=== PATIENT | male | born 1960 | race Caucasian/White ===

== ENCOUNTER 2016-08-09 16:43 | Emergency (ER) | payer OTHER ==
--- NOTE | 2016-08-09 18:05 | ERRECORD ---
[facility] EMERGENCY RECORD PAST MEDICAL HISTORY (17:51 MDEB) MEDICAL HISTORY: Tetanus not up to date, Pneumococcal vaccine not up to date, , Past medical history includes history of diabetes, Type II, Past medical history includes endocrine disease, hypothyroidism, Past medical history includes history of hyperlipidemia, high cholesterol, Past medical history includes history of hypertension, which has been treated, Past medical history includes pulmonary disease, chronic obstructive pulmonary disease, Past medical history includes cardiac history, Past medical history includes history of diabetes, Past medical history includes history of hyperlipidemia, medical history includes cardiac history, unspecified valvular heart disease, history of hypertension, which has been treated, Patient is compliant, , cardiac history, myocardial infarction ([id number]),,: ANXIETY, . Notes: recent CABG.11/16/11. Tetanus immunization up to date, Date of immunization: LESS THAN 5 YRS. VERIFIED 06/19/16. MALE SURGICAL HISTORY: hernia repair 02-13-16, Surgical history of coronary artery bypass graft surgery, Surgical history of orthopedic surgery, RIGHT ROTATOR CUFF SURGERY, Surgical history of coronary artery bypass graft surgery,. VERIFIED 06/19/16. PSYCHIATRIC HISTORY: Psychiatric history includes, anxiety, depression, Psychiatric history includes, anxiety, depression. No previous psychiatric history. SOCIAL HISTORY: Social History includes off of etoh for 18 months, Patient denies alcohol use, Patient is a former drug user, abused marijuana, Patient currently uses tobacco, chews tobacco, daily, Lives at home. FAMILY HISTORY: Family history includes coronary artery disease, father, Family history includes cerebral vascular accident, mother, maternal grandmother, Family history includes diabetes, father, maternal grandmother, Family history includes hypertension, No significant family history,. KNOWN ALLERGIES No Known Allergies (Unconfirmed) No Known Drug Allergies (Unconfirmed) CURRENT MEDICATIONS No recorded medications PROBLEM LIST No recorded problems DIAGNOSIS (17:53 MDEB) FINAL: PRIMARY: NONE. PRESCRIPTION No recorded prescriptions DISPOSITION (17:53 MDEB) &a-1R&a+25V*p+0X*[id number]*c202B*c15G*c2P*p-0X&a-25V&a+1R Name: Neo Rodríguez : 1960 M56 MedRec: [id number] AcctNum: [id number] Prepared: TueAug 09, 2016 17:58 by Interface Page 1 of 2 pMD [facility] EMERGENCY RECORD PATIENT: Disposition Type: Eloped, Disposition: Left Without Triage, Patient left the department. Loaiza: SANAM=MINA Ojeda, Freda &a-1R&a+25V*p+0X*[id number]*c202B*c15G*c2P*p-0X&a-25V&a+1R Name: Neo Rodríguez : 1960 M56 MedRec: [id number] AcctNum: [id number] Prepared: TueAug 09, 2016 17:58 by Interface Page 2 of 2 pMD [facility]
--- NOTE | 2016-08-09 18:08 | PICIS ---
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 ER, SSN: [id number], Zip Code: [address], KG WEIGHT: 73.48, PHONE: , , , PERSON ID: [id number], PCP: UNKNOWN. COMPLAINT: NECK & RT SIDE PAIN. ADMISSION: URGENCY: 4 Non Urgent, ADMISSION SOURCE: Home, TRANSPORT: Walk-in, BED: TRIAGE. PROVIDERS: TRIAGE NURSE: Freda Ojeda RN. KNOWN ALLERGIES No Known Allergies (Unconfirmed) No Known Drug Allergies (Unconfirmed) CURRENT MEDICATIONS No recorded medications PAST MEDICAL HISTORY (17:51 MDEB) MEDICAL HISTORY: Tetanus not up to date, Pneumococcal vaccine not up to date, , Past medical history includes history of diabetes, Type II, Past medical history includes endocrine disease, hypothyroidism, Past medical history includes history of hyperlipidemia, high cholesterol, Past medical history includes history of hypertension, which has been treated, Past medical history includes pulmonary disease, chronic obstructive pulmonary disease, Past medical history includes cardiac history, Past medical history includes history of diabetes, Past medical history includes history of hyperlipidemia, medical history includes cardiac history, unspecified valvular heart disease, history of hypertension, which has been treated, Patient is compliant, , cardiac history, myocardial infarction ([id number]),,: ANXIETY, . Notes: recent CABG.11/16/11. Tetanus immunization up to date, Date of immunization: LESS THAN 5 YRS. VERIFIED 06/19/16. MALE SURGICAL HISTORY: hernia repair 02-13-16, Surgical history of coronary artery bypass graft surgery, Surgical history of orthopedic surgery, RIGHT ROTATOR CUFF SURGERY, Surgical history of coronary artery bypass graft surgery,. VERIFIED 06/19/16. PSYCHIATRIC HISTORY: Psychiatric history includes, anxiety, depression, Psychiatric history includes, anxiety, depression. No previous psychiatric history. SOCIAL HISTORY: Social History includes off of etoh for 18 months, Patient denies alcohol use, Patient is a former drug user, abused marijuana, Patient currently uses tobacco, chews tobacco, daily, Lives at home. FAMILY HISTORY: Family history includes coronary artery disease, father, Family history includes cerebral vascular accident, mother, maternal grandmother, Family history includes diabetes, &a-1R&a+25V*p+0X*k1830X*c202B*c15G*c2P*p-0X&a-25V&a+1R Name: Neo Rodríguez : 1960 M56 MedRec: [id number] AcctNum: [id number] Prepared: TueAug 09, 2016 18:06 by Interface Page [address] [facility] EMERGENCY RECORD father, maternal grandmother, Family history includes hypertension, No significant family history,. EVENTS TRANSFER: Triage to Emergency Triage. (TueAug 09, 2016 17:51 MDEB) Removed from Emergency Triage. (17:53 MDEB) PROBLEM LIST No recorded problems DIAGNOSIS (17:53 MDEB) FINAL: PRIMARY: NONE. DISPOSITION (17:53 MDEB) PATIENT: Disposition Type: Eloped, Disposition: Left Without Triage, Patient left the department. PRESCRIPTION No recorded prescriptions Loaiza: MDEB=MINA Ojeda, Freda &a-1R&a+25V*p+0X*[id number]*c202B*c15G*c2P*p-0X&a-25V&a+1R Name: Neo Rodríguez : 1960 M56 MedRec: [id number] AcctNum: [id number] Prepared: TueAug 09, 2016 18:06 by Interface Page 2 [facility] 2 pMD [facility]
== END 2016-08-09 17:32 | disposition left against medical advice (07) ==
LOC: MADERS 16:43
DX: Z53.21 Procedure and treatment not carried out due to patient leaving prior to being seen by health care provider (principal)

== ENCOUNTER 2016-09-09 01:16 | Emergency (ER) | payer OTHER ==
[2016-09-09] MEDS ORDERED: Metoclopramide HCl 10 MG/2 ML VIAL ONE (01:48)
[2016-09-09] MEDS ORDERED: Ketorolac Tromethamine 30 MG/ML VIAL ONE (01:48)
[2016-09-09] MEDS ORDERED: methylPREDNISolone Sod Succ/PF 125 MG/2 ML VIAL ONE ×2 (01:48→01:50)
[2016-09-09] MEDS ORDERED: diphenhydrAMINE HCl 50 MG/ML 1 ML VIAL ONE (01:48)
[2016-09-09 02:25] LABS: #Basophils 0.2 thou/uL (0.0-0.2); #Eosinphils 0.2 thou/uL (0.0-0.7); #Lymphocytes 1.3 thou/uL (1.20-3.40); #Monocytes 0.6 thou/uL (0.11-0.59); %Basophils 1.8 % (0.0-1.0); %Eosinophils 1.5 % (0.0-10.0); %Monocytes 5.8 % (0.0-10.0); %Neutrophils 77.9 % (42.0-75.0); Hemoglobin 13.4 g/dL (14.0-18.0); Mean Corpuscular HGB CONC 32.6 g/dL (32.0-36.0); Mean Corpuscular Volume 88.9 fl (80.0-94.0); Mean Platelet Volume 7.5 fL (7.4-10.4); Platelet Count 262 thou/uL (130-400); RBC Distribution Width 14.2 % (11.5-14.5); Red Blood Cell (RBC) Count 4.63 mill/uL (4.70-6.10); White Blood Cell (WBC) Count 10.3 thou/uL (4.8-10.8)
[2016-09-09 02:37] LABS: ALT (SGPT) 31 U/L (0-55); AST (SGOT) 34 U/L (5-34); Albumin 4.1 g/dL (3.5-5.0); Alkaline Phosphatase 77 U/L (40-150); Anion Gap 13 mmol/L (10-20); BUN (Urea Nitrogen) 11 mg/dL (8.4-25.7); Bilirubin, Total 0.3 mg/dL (0.2-1.2); Calc. Creatinine Clearance 0 mL/min (70-130); Carbon Dioxide 27 mmol/L (22-29); Chloride 102 mmol/L (98-107); Estimated GFR-MDRD 56; Globulin 2.8 g/dL (2.4-3.5); Glucose 202 mg/dL (70-105); Potassium 4.6 mmol/L (3.5-5.1); Protein, Total 6.9 g/dL (6.0-8.3); Sodium 137 mmol/L (136-145)
[2016-09-09] MEDS ORDERED: Sodium Chloride 0.9% 1,000 ML BAG ONE (07:07)
[2016-09-09] MEDS ORDERED: Sodium Chloride 0.9% 100 ML BAG ONE (07:07)
--- NOTE | 2016-09-09 12:25 | CT ---
PRELIMINARY REPORT/[facility]/EMERGENCY AFTER HOURS PROCEDURE: EXAM: CT Head Without Intravenous Contrast. CLINICAL HISTORY: 56 years old, male; Pain; Headache; Headache not specified TECHNIQUE: Axial computed tomography images of the head/brain without intravenous contrast. COMPARISON: No relevant prior studies available. FINDINGS: Brain: Normal. Ventricles: Normal. Bones/joints: Normal. No acute fracture. Soft tissues: Normal. Sinuses: Normal. Mastoid air cells: Normal as visualized. No mastoid effusion. IMPRESSION: Normal head/brain CT. Thank you for allowing us to participate in the care of your patient. Dictated and Authenticated by: Jose A Chavez MD 09/09/2016 2:31 AM Central Time ([place] \T\ [place]) FINAL REPORT EMERGENT AFTER HOURS CT OF BRAIN PERFORMED WITHOUT CONTRAST ENHANCEMENT: HISTORY: Headache. FINDINGS: Ventricular and cisternal system is within normal limits for age. There are no signs of intracerebr al hemorrhage or extraaxial fluid collections. The mastoid air cells and visualized sinuses are kathleen ar. IMPRESSION: 1. No acute intracranial abnormalities. 2. This report is in agreement with the temporary report issued by [facility]. POS: [facility]
== END 2016-09-09 03:35 | disposition home or self-care (01) ==
LOC: MADERS 01:16
DX: E11.649 Type 2 diabetes mellitus with hypoglycemia without coma (principal); G43.909 Migraine, unspecified, not intractable, without status migrainosus; E03.9 Hypothyroidism, unspecified; E78.5 Hyperlipidemia, unspecified; E78.00 Pure hypercholesterolemia, unspecified; J44.9 Chronic obstructive pulmonary disease, unspecified; I10 Essential (primary) hypertension; F41.9 Anxiety disorder, unspecified; F32.9 Major depressive disorder, single episode, unspecified; F17.220 Nicotine dependence, chewing tobacco, uncomplicated
CPT/HCPCS: 36416; 70450; 80053; 85025; 96365; 96366; 96375; 36415-59; J1200; J1885; J2765; J2930; J7050

== ENCOUNTER 2016-11-20 10:23 | Emergency (ER) | payer OTHER ==
[2016-11-20] MEDS ORDERED: Metoclopramide HCl 10 MG/2 ML VIAL ONE (10:58)
== END 2016-11-20 12:30 | disposition home or self-care (01) ==
LOC: MADERS 10:23
DX: K59.00 Constipation, unspecified (principal); I12.9 Hypertensive chronic kidney disease with stage 1 through stage 4 chronic kidney disease, or unspecified chronic kidney disease; N18.9 Chronic kidney disease, unspecified; E03.9 Hypothyroidism, unspecified; E78.5 Hyperlipidemia, unspecified; E78.00 Pure hypercholesterolemia, unspecified; F41.9 Anxiety disorder, unspecified; F32.9 Major depressive disorder, single episode, unspecified; Z87.891 Personal history of nicotine dependence
CPT/HCPCS: 96372; J2765

== ENCOUNTER 2017-01-03 20:55 | Emergency (ER) | payer OTHER ==
[2017-01-03] MEDS ORDERED: HYDROcodone/Acetaminophen 10/325 mg Tablet ONE (21:28)
[2017-01-03] MEDS ORDERED: Cyclobenzaprine 10 MG TAB ONE (21:29)
== END 2017-01-03 21:53 | disposition home or self-care (01) ==
LOC: MADERS 20:55
DX: M54.5 Low back pain (principal); E11.9 Type 2 diabetes mellitus without complications; E03.9 Hypothyroidism, unspecified; E78.5 Hyperlipidemia, unspecified; I25.2 Old myocardial infarction; F41.9 Anxiety disorder, unspecified; J44.9 Chronic obstructive pulmonary disease, unspecified; I12.9 Hypertensive chronic kidney disease with stage 1 through stage 4 chronic kidney disease, or unspecified chronic kidney disease; N18.9 Chronic kidney disease, unspecified; Z79.899 Other long term (current) drug therapy; Z79.4 Long term (current) use of insulin; Z79.82 Long term (current) use of aspirin
CPT/HCPCS: 99283

== ENCOUNTER 2017-08-31 10:45 | Emergency (ER) | payer OTHER ==
[2017-08-31] MEDS ORDERED: Iopamidol 370 76% 100 ML VIAL ONE (11:27)
[2017-08-31 11:39] LABS: #Basophils 0.1 thou/uL (0.0-0.2); #Eosinphils 0.1 thou/uL (0.0-0.7); #Monocytes 1.2 thou/uL (0.11-0.59); #Neutrophils 11.7 thou/uL (1.40-6.50); %Basophils 0.9 % (0.0-1.0); %Eosinophils 0.8 % (0.0-10.0); %Lymphocytes 18.3 % (21.0-51.0); %Monocytes 7.6 % (0.0-10.0); %Neutrophils 72.4 % (42.0-75.0); Hemoglobin 14.6 g/dL (14.0-18.0); Mean Corpuscular HGB CONC 30.9 g/dL (32.0-36.0); Mean Corpuscular Hemoglobin 28.3 pg (27.0-31.0); Mean Corpuscular Volume 91.4 fl (80.0-94.0); Platelet Count 249 thou/uL (130-400); Red Blood Cell (RBC) Count 5.15 mill/uL (4.70-6.10); White Blood Cell (WBC) Count 16.2 thou/uL (4.8-10.8)
[2017-08-31] MEDS ORDERED: Ondansetron HCl/PF 4 MG/2 ML Vial ONE (11:44)
[2017-08-31] MEDS ORDERED: Ketorolac Tromethamine 30 MG/ML VIAL ONE (11:44)
[2017-08-31 11:54] LABS: ALT (SGPT) 26 U/L (8-55); AST (SGOT) 25 U/L (5-34); Albumin 4.2 g/dL (3.5-5.0); Alkaline Phosphatase 67 U/L (40-150); Anion Gap 15 mmol/L (10-20); BUN (Urea Nitrogen) 16 mg/dL (8.4-25.7); Calc. Creatinine Clearance 0 mL/min (70-130); Calcium 9.5 mg/dL (7.8-10.44); Carbon Dioxide 28 mmol/L (22-29); Chloride 98 mmol/L (98-107); Estimated GFR-MDRD 47; Globulin 3.4 g/dL (2.4-3.5); Glucose 193 mg/dL (70-105); Lipase 7 U/L (8-78); Potassium 4.8 mmol/L (3.5-5.1); Protein, Total 7.6 g/dL (6.0-8.3); Sodium 136 mmol/L (136-145)
[2017-08-31 11:55] LABS: Bilirubin Negative (Negative); Blood, Urine Negative (Negative); Clarity Clear (Clear); Glucose, Urine (Dipstick) 500 mg/dL (Negative); Leukocyte Negative (Negative); Nitrite Negative (Negative); Protein, Urine (Dipstick) Trace mg/dL (Neg-Trace); Specific Gravity, Urine 1.015 (1.005-1.030); Urobilinogen 0.2 mg/dL (0.2-1.0)
[2017-08-31] MEDS ORDERED: MORPHINE 10 MG/ML SYRINGE ONE (12:20)
[2017-08-31] MEDS ORDERED: Piperacillin/Tazobactam 3.375 GM VIAL ONE (12:20)
[2017-08-31 12:24] LABS: Bilirubin, Total 0.6 mg/dL (0.2-1.2)
--- NOTE | 2017-08-31 13:22 | CT ---
CT ABDOMEN AND PELVIS WITH IV CONTRAST: HISTORY: Abdominal pain. FINDINGS: Comparison is made with the exam of 11/22/16. There is a calcified granuloma in the anterior lung base. The liver, pancreas, adrenal gland, and ki dneys are normal. No calcified gallstones are seen. Multiple calcified granulomas are seen in the s pleen. No free air, free fluid, or lymphadenopathy is seen. The appendix is dilated, fluid-filled w ith periappendiceal inflammatory changes which extend into the adjacent sigmoid colon. The prostate is enlarged. There are degenerative changes in the spine. IMPRESSION: Acute appendicitis. Discussed over the telephone with ER physician, Dr. Rigo Barcenas, at 12:10 p.m. CODE CR POS: [facility]
[2017-08-31] MEDS ORDERED: Sodium Chloride 0.9% 100 ML BAG ONE (13:47)
[2017-08-31] MEDS ORDERED: Sodium Chloride 0.9% 1,000 ML BAG ONE (13:47)
[2017-08-31] MEDS ORDERED: Fentanyl 100 MCG/2 ML VIAL ONE ×2 (19:10→19:35)
== END 2017-08-31 13:07 | disposition short-term general hospital (02) ==
LOC: MADERS 10:45
DX: K35.80 Unspecified acute appendicitis (principal); E11.9 Type 2 diabetes mellitus without complications; E03.9 Hypothyroidism, unspecified; E78.5 Hyperlipidemia, unspecified; J44.9 Chronic obstructive pulmonary disease, unspecified; I25.2 Old myocardial infarction; F41.9 Anxiety disorder, unspecified; I12.9 Hypertensive chronic kidney disease with stage 1 through stage 4 chronic kidney disease, or unspecified chronic kidney disease; N18.9 Chronic kidney disease, unspecified; F32.9 Major depressive disorder, single episode, unspecified; Z87.891 Personal history of nicotine dependence; Z79.899 Other long term (current) drug therapy; Z79.4 Long term (current) use of insulin
CPT/HCPCS: 74177; 80053; 81003; 83690; 85025; 96361; 96365; 96375; J1885; J2270; J2405; J2543; J3010; J7050; J7620

== ENCOUNTER 2017-09-16 10:34 | Emergency (ER) | payer OTHER ==
[2017-09-16 11:22] LABS: Bilirubin Negative (Negative); Blood, Urine Negative (Negative); Clarity Clear (Clear); Glucose, Urine (Dipstick) 500 mg/dL (Negative); Leukocyte Negative (Negative); Nitrite Negative (Negative); Protein, Urine (Dipstick) Negative (Neg-Trace); Urobilinogen 0.2 mg/dL (0.2-1.0); pH, Urine 5.5 (5.0-9.0)
[2017-09-16 11:29] LABS: #Basophils 0.1 thou/uL (0.0-0.2); #Eosinphils 0.2 thou/uL (0.0-0.7); #Lymphocytes 2.3 thou/uL (1.20-3.40); #Monocytes 0.8 thou/uL (0.11-0.59); #Neutrophils 7.8 thou/uL (1.40-6.50); %Basophils 0.9 % (0.0-1.0); %Eosinophils 1.7 % (0.0-10.0); %Lymphocytes 20.7 % (21.0-51.0); %Monocytes 6.8 % (0.0-10.0); %Neutrophils 69.9 % (42.0-75.0); Hemoglobin 13.4 g/dL (14.0-18.0); Mean Corpuscular HGB CONC 30.7 g/dL (32.0-36.0); Mean Corpuscular Hemoglobin 28.5 pg (27.0-31.0); Mean Corpuscular Volume 92.9 fl (80.0-94.0); Mean Platelet Volume 7.1 fL (7.4-10.4); Platelet Count 257 thou/uL (130-400); RBC Distribution Width 15.5 % (11.5-14.5); Red Blood Cell (RBC) Count 4.68 mill/uL (4.70-6.10); White Blood Cell (WBC) Count 11.2 thou/uL (4.8-10.8)
[2017-09-16 11:41] LABS: ALT (SGPT) 32 U/L (8-55); AST (SGOT) 25 U/L (5-34); Albumin 3.9 g/dL (3.5-5.0); Alkaline Phosphatase 71 U/L (40-150); Anion Gap 14 mmol/L (10-20); BUN (Urea Nitrogen) 22 mg/dL (8.4-25.7); Bilirubin, Total 0.2 mg/dL (0.2-1.2); Calc. Creatinine Clearance 0 mL/min (70-130); Calcium 9.1 mg/dL (7.8-10.44); Carbon Dioxide 27 mmol/L (22-29); Chloride 98 mmol/L (98-107); Estimated GFR-MDRD 44; Glucose 332 mg/dL (70-105); Potassium 5.1 mmol/L (3.5-5.1); Protein, Total 6.9 g/dL (6.0-8.3); Sodium 134 mmol/L (136-145)
== END 2017-09-16 12:00 | disposition home or self-care (01) ==
LOC: MADERS 10:34
DX: G89.18 Other acute postprocedural pain (principal); K59.00 Constipation, unspecified; E03.9 Hypothyroidism, unspecified; E78.5 Hyperlipidemia, unspecified; J44.9 Chronic obstructive pulmonary disease, unspecified; I25.2 Old myocardial infarction; F41.9 Anxiety disorder, unspecified; M19.90 Unspecified osteoarthritis, unspecified site; I12.9 Hypertensive chronic kidney disease with stage 1 through stage 4 chronic kidney disease, or unspecified chronic kidney disease; E11.22 Type 2 diabetes mellitus with diabetic chronic kidney disease; N18.9 Chronic kidney disease, unspecified; F32.9 Major depressive disorder, single episode, unspecified; Z87.891 Personal history of nicotine dependence; Z79.82 Long term (current) use of aspirin; Z79.4 Long term (current) use of insulin; Z79.899 Other long term (current) drug therapy
CPT/HCPCS: 80053; 81003; 83605; 85025; 99283

== ENCOUNTER 2017-12-29 19:09 | Emergency (ER) | payer OTHER ==
[~2017-12-29 19:09] MED LIST: Sodium Chloride 0.9% 1,000 ML BAG ONE
[2017-12-29] MEDS ORDERED: Fentanyl 100 MCG/2 ML VIAL ONE ×2 (19:31→21:01)
[2017-12-29] MEDS ORDERED: Famotidine In NaCl 20 mg/50 ml Premix Bag ONE (19:31)
[2017-12-29] MEDS ORDERED: Ondansetron HCl/PF 4 MG/2 ML Vial ONE ×2 (19:31→21:01)
[2017-12-29 19:48] LABS: Anion Gap 17 mmol/L (10-20); BUN (Urea Nitrogen) 28 mg/dL (8.4-25.7); Calc. Creatinine Clearance 0 mL/min (70-130); Calcium 9.7 mg/dL (7.8-10.44); Carbon Dioxide 23 mmol/L (22-29); Chloride 98 mmol/L (98-107); Estimated GFR-MDRD 33; Glucose 129 mg/dL (70-105); Potassium 4.7 mmol/L (3.5-5.1); Sodium 133 mmol/L (136-145)
[2017-12-29 19:53] LABS: Band 2 % (5-11); Hemoglobin 15.7 g/dL (14.0-18.0); Lymphocytes 38 % (21-51); MDiff Complete? YES; Mean Corpuscular HGB CONC 31.7 g/dL (32.0-36.0); Mean Corpuscular Hemoglobin 27.4 pg (27.0-31.0); Mean Corpuscular Volume 86.3 fL (78.0-98.0); Mean Platelet Volume 6.4 fL (7.4-10.4); Monocytes 8 % (0-10); Neutrophil 52 % (42-75); PLT Morphology Comment Appears Adequate; Platelet Count 313 thou/uL (130-400); RBC Distribution Width 13.9 % (11.5-14.5); Red Blood Cell (RBC) Count 5.72 mill/uL (4.70-6.10)
--- NOTE | 2017-12-29 22:00 | CT ---
CT ABDOMEN NONCONTRAST CT PELVIS NONCONTRAST: DATE: 12/29/17 TIME: 9:30 p.m. HISTORY: 57-year-old male with left upper quadrant abdominal pain and left lower quadrant abdominal pain. COMPARISON: CT abdomen and pelvis with contrast of 08/31/17. TECHNIQUE: Oral contrast: Administered. IV contrast: Not administered due to chronic kidney disease and elevated serum creatinine. FINDINGS: Previously on 08/31/17, there was acute appendicitis. The appendix has since been surgically resected, and there are two tiny clips near the distal tip of the cecum. The oral contrast material fills the colon from the cecum to the sigmoid colon. No evidence of acute colonic diverticulitis or colitis inv olving these segments. No small bowel dilation. No ascites or pneumoperitoneum. Prominent prostate gl and. Borderline mural thickening of the urinary bladder which is otherwise unremarkable. No evidence of abscess, free air, or free fluid, within the abdominal cavity or pelvic cavity. Lung bases are kathleen ar of acute air space densities and pleural effusion. Within the limitations of the noncontrast scan, no major pathology identified involving the abdominal aorta, liver, pancreas, kidneys, adrenals, or spleen. No destructive osseous lesion identified. Numerous tiny calcified granulomata throughout the spleen. Calcified hilar lymph nodes in the chest bilaterally. IMPRESSION: 1. Enlarged prostate gland and probable, at least mild, chronic bladder outlet obstruction. 2. Status post appendectomy. 3. No acute findings. POS: [facility]
== END 2017-12-29 22:20 | disposition home or self-care (01) ==
LOC: MADERS 19:09
DX: R10.12 Left upper quadrant pain (principal); I12.9 Hypertensive chronic kidney disease with stage 1 through stage 4 chronic kidney disease, or unspecified chronic kidney disease; E11.22 Type 2 diabetes mellitus with diabetic chronic kidney disease; N18.9 Chronic kidney disease, unspecified; E03.9 Hypothyroidism, unspecified; E78.5 Hyperlipidemia, unspecified; M19.90 Unspecified osteoarthritis, unspecified site; F41.9 Anxiety disorder, unspecified; F32.9 Major depressive disorder, single episode, unspecified; Z79.82 Long term (current) use of aspirin; Z79.899 Other long term (current) drug therapy; Z79.4 Long term (current) use of insulin; Z87.891 Personal history of nicotine dependence
CPT/HCPCS: 74176; 80048; 82150; 83605; 85025; 96361; 96365; 96375; 96376; J2405; J3010; J7050

== ENCOUNTER 2018-02-25 20:21 | Emergency (ER) | payer OTHER ==
[2018-02-25] MEDS ORDERED: Ondansetron ODT 4 MG TAB ONE (20:55)
[2018-02-25 21:00] LABS: Bilirubin Negative (Negative); Blood, Urine Negative (Negative); Clarity Clear (Clear); Glucose, Urine (Dipstick) 100 mg/dL (Negative); Leukocyte Negative (Negative); Nitrite Negative (Negative); Protein, Urine (Dipstick) Negative (Neg-Trace); Specific Gravity, Urine 1.015 (1.005-1.030); Urobilinogen 0.2 mg/dL (0.2-1.0)
--- NOTE | 2018-02-25 21:05 | RAD ---
ABDOMEN ONE VIEW: 02/25/18 HISTORY: Abdominal pain. Constipation. FINDINGS: Small bowel gas pattern is nonspecific. No radiopaque foreign bodies are evident. Degenerative change s of the hips and lumbar spine. IMPRESSION: No significant abnormalities are demonstrated. POS: [facility]
[2018-02-25] MEDS ORDERED: Ibuprofen 800 MG TAB ONE (21:44)
== END 2018-02-25 21:46 | disposition home or self-care (01) ==
LOC: MADERS 20:21
DX: K59.00 Constipation, unspecified (principal); M54.5 Low back pain; I10 Essential (primary) hypertension; E11.9 Type 2 diabetes mellitus without complications; E78.5 Hyperlipidemia, unspecified; J44.9 Chronic obstructive pulmonary disease, unspecified; I25.2 Old myocardial infarction; F41.9 Anxiety disorder, unspecified; F32.9 Major depressive disorder, single episode, unspecified; Z79.4 Long term (current) use of insulin; Z79.899 Other long term (current) drug therapy; Z79.891 Long term (current) use of opiate analgesic
CPT/HCPCS: 74018; 81003; Q0162

== ENCOUNTER 2018-04-02 23:57 | Emergency (ER) | payer OTHER ==
[~2018-04-02 23:57] MED LIST changes: -Sodium Chloride 0.9% 1,000 ML BAG ONE; +Sodium Chloride Irrig Solution 250 ML BOT ONE
[2018-04-03] MEDS ORDERED: Lidocaine 2% w/Epinephrine 1:200K 20 ML VIAL ONE (00:11)
== END 2018-04-03 00:40 | disposition home or self-care (01) ==
LOC: MADERS 23:57
DX: S21.211A Laceration without foreign body of right back wall of thorax without penetration into thoracic cavity, initial encounter (principal); E78.5 Hyperlipidemia, unspecified; E11.22 Type 2 diabetes mellitus with diabetic chronic kidney disease; M19.90 Unspecified osteoarthritis, unspecified site; I12.9 Hypertensive chronic kidney disease with stage 1 through stage 4 chronic kidney disease, or unspecified chronic kidney disease; N18.9 Chronic kidney disease, unspecified; I25.2 Old myocardial infarction; J44.9 Chronic obstructive pulmonary disease, unspecified; F41.9 Anxiety disorder, unspecified; F32.9 Major depressive disorder, single episode, unspecified; I38 Endocarditis, valve unspecified; Z87.891 Personal history of nicotine dependence; Z79.4 Long term (current) use of insulin; Z79.891 Long term (current) use of opiate analgesic; Z79.899 Other long term (current) drug therapy; Z79.82 Long term (current) use of aspirin
CPT/HCPCS: 12001

== ENCOUNTER 2018-05-09 20:31 | Emergency (ER) | payer OTHER ==
[2018-05-09] MEDS ORDERED: Ondansetron PF 4 MG/2 ML Vial ONE (20:59)
[2018-05-09 21:16] LABS: #Basophils 0.2 thou/uL (0.0-0.2); #Eosinphils 0.2 thou/uL (0.0-0.7); #Lymphocytes 3.5 thou/uL (1.20-3.40); #Monocytes 0.9 thou/uL (0.11-0.59); #Neutrophils 6.6 thou/uL (1.40-6.50); %Basophils 1.4 % (0.0-1.0); %Lymphocytes 30.9 % (21.0-51.0); %Monocytes 7.6 % (0.0-10.0); %Neutrophils 58.1 % (42.0-75.0); Hemoglobin 14.8 g/dL (14.0-18.0); Mean Corpuscular HGB CONC 34.1 g/dL (32.0-36.0); Mean Corpuscular Hemoglobin 31.4 pg (27.0-31.0); Mean Corpuscular Volume 92.1 fL (78.0-98.0); Mean Platelet Volume 6.9 fL (7.4-10.4); Platelet Count 268 thou/uL (130-400); RBC Distribution Width 12.8 % (11.5-14.5); Red Blood Cell (RBC) Count 4.71 mill/uL (4.70-6.10); White Blood Cell (WBC) Count 11.4 thou/uL (4.8-10.8)
[2018-05-09 21:20] LABS: Bilirubin Negative (Negative); Blood, Urine Negative (Negative); Clarity Clear (Clear); Glucose, Urine (Dipstick) 100 mg/dL (Negative); Leukocyte Negative (Negative); Nitrite Negative (Negative); Protein, Urine (Dipstick) Negative (Neg-Trace); Urobilinogen 0.2 mg/dL (0.2-1.0)
[2018-05-09] MEDS ORDERED: Acetaminophen 500 MG TAB ONE (21:29)
[2018-05-09 21:37] LABS: ALT (SGPT) 39 U/L (8-55); AST (SGOT) 42 U/L (5-34); Albumin 4.1 g/dL (3.5-5.0); Alkaline Phosphatase 73 U/L (40-150); Anion Gap 14 mmol/L (10-20); BUN (Urea Nitrogen) 17 mg/dL (8.4-25.7); Bilirubin, Total 0.4 mg/dL (0.2-1.2); Calc. Creatinine Clearance 0 mL/min (70-130); Calcium 8.9 mg/dL (7.8-10.44); Carbon Dioxide 24 mmol/L (22-29); Chloride 103 mmol/L (98-107); Estimated GFR-MDRD 49; Glucose 145 mg/dL (70-105); Lipase 29 U/L (8-78); Potassium 3.7 mmol/L (3.5-5.1); Protein, Total 7.1 g/dL (6.0-8.3); Sodium 137 mmol/L (136-145)
--- NOTE | 2018-05-09 22:25 | RAD ---
CHEST ONE VIEW: 05/09/18 COMPARISON: 08/31/17. HISTORY: Dyspnea. FINDINGS: There are sternotomy wires. There is calcification of mediastinal and hilar lymph nodes, unchanged. N ormal cardiac silhouette. Pulmonary vessels are prominent. Patchy interstitial opacities may represen t edema or infiltrate. No consolidation or pleural effusion. No pneumothorax or osseous abnormalities . IMPRESSION: Pulmonary vascular prominence and possible interstitial edema. POS: [facility]
--- NOTE | 2018-05-09 23:40 | CT ---
ABDOMEN CT WITH CONTRAST PELVIC CT WITH CONTRAST 05/09/18 HISTORY: Right flank pain. COMPARISON: 08/31/17, 12/29/17. FINDINGS: ABDOMEN CT: Stable calcified lung parenchymal nodules and hilar lymph nodes. Normal heart size. No pericardial fl uid. The visualized aorta is normal in caliber. Portal vein is patent. Unremarkable gallbladder. The liver, spleen, pancreas, and adrenal glands have appropriate enhancement. No gastrohepatic, periportal or retrocrural lymphadenopathy. There are stable nonspecific gastrohepat ic lymph nodes, largest lymph node measuring 6 mm. Symmetric enhancement of the kidneys. Bilaterally, no obstructive uropathy. No mesenteric mass, lymphadenopathy, free air, or free fluid. Limited evaluation of the alimentary canal due to lack of oral contrast. No evidence of bowel obstruc tion. Previous appendectomy is noted. Unremarkable colon. Occasional diverticulum. No diverticulitis. CT PELVIS: No pelvic mass, lymphadenopathy, free air or free fluid. Prostate gland is mildly enlarged. Bladder m ucosa is unremarkable. No lytic or blastic lesions in the osseous structures. IMPRESSION: No acute abnormality in the abdomen or pelvis. POS: [facility]
== END 2018-05-09 22:35 | disposition home or self-care (01) ==
LOC: MADERS 20:31
DX: R10.9 Unspecified abdominal pain (principal); J44.9 Chronic obstructive pulmonary disease, unspecified; E11.9 Type 2 diabetes mellitus without complications; E78.5 Hyperlipidemia, unspecified; I38 Endocarditis, valve unspecified; N18.9 Chronic kidney disease, unspecified; F41.9 Anxiety disorder, unspecified; M19.90 Unspecified osteoarthritis, unspecified site; F17.220 Nicotine dependence, chewing tobacco, uncomplicated; F32.9 Major depressive disorder, single episode, unspecified; Z79.891 Long term (current) use of opiate analgesic; Z79.4 Long term (current) use of insulin
CPT/HCPCS: 71045; 74177; 80053; 81003; 83605; 83690; 85025; 94640; 94760; 96374; J2405; J7620

== ENCOUNTER 2018-09-20 19:56 | Emergency (ER) | payer OTHER ==
[~2018-09-20 19:56] MED LIST changes: +Iopamidol 370 76% 100 ML VIAL ONE; -Sodium Chloride Irrig Solution 250 ML BOT ONE
[2018-09-20] MEDS ORDERED: Sodium Chloride 0.9% 1,000 ML ONE (20:30)
[2018-09-20] MEDS ORDERED: Ondansetron PF 4 MG/2 ML Vial ONE (20:30)
[2018-09-20] MEDS ORDERED: Fentanyl 100 MCG/2 ML VIAL ONE (20:30)
[2018-09-20 20:34] LABS: #Basophils 0.1 thou/uL (0.0-0.2); #Eosinphils 0.2 thou/uL (0.0-0.7); #Lymphocytes 3.5 thou/uL (1.20-3.40); #Monocytes 0.9 thou/uL (0.11-0.59); %Basophils 1.1 % (0.0-1.0); %Eosinophils 2.1 % (0.0-10.0); %Lymphocytes 29.5 % (21.0-51.0); %Monocytes 7.8 % (0.0-10.0); %Neutrophils 59.5 % (42.0-75.0); Hemoglobin 16.6 g/dL (14.0-18.0); Mean Corpuscular HGB CONC 32.1 g/dL (32.0-36.0); Mean Corpuscular Volume 93.4 fL (78.0-98.0); Mean Platelet Volume 7.2 fL (7.4-10.4); Platelet Count 264 thou/uL (130-400); RBC Distribution Width 12.5 % (11.5-14.5); Red Blood Cell (RBC) Count 5.54 mill/uL (4.70-6.10); White Blood Cell (WBC) Count 11.7 thou/uL (4.8-10.8)
[2018-09-20 20:41] LABS: Bilirubin Negative (Negative); Blood, Urine Negative (Negative); Clarity Clear (Clear); Glucose, Urine (Dipstick) 100 mg/dL (Negative); Leukocyte Negative (Negative); Nitrite Negative (Negative); Protein, Urine (Dipstick) Negative (Neg-Trace); Specific Gravity, Urine 1.015 (1.005-1.030); Urobilinogen 0.2 mg/dL (0.2-1.0); pH, Urine 7.5 (5.0-9.0)
[2018-09-20 20:51] LABS: ALT (SGPT) 31 U/L (8-55); AST (SGOT) 24 U/L (5-34); Albumin 4.5 g/dL (3.5-5.0); Alkaline Phosphatase 74 U/L (40-150); Anion Gap 16 mmol/L (10-20); BUN (Urea Nitrogen) 26 mg/dL (8.4-25.7); Bilirubin, Total 0.3 mg/dL (0.2-1.2); Calc. Creatinine Clearance 0 mL/min (70-130); Calcium 9.7 mg/dL (7.8-10.44); Carbon Dioxide 28 mmol/L (22-29); Chloride 98 mmol/L (98-107); Estimated GFR-MDRD 44; Globulin 2.7 g/dL (2.4-3.5); Glucose 165 mg/dL (70-105); Lipase 22 U/L (8-78); Potassium 4.7 mmol/L (3.5-5.1); Protein, Total 7.2 g/dL (6.0-8.3); Sodium 137 mmol/L (136-145)
[2018-09-20] MEDS ORDERED: Dicyclomine 10 MG CAP ONE (21:53)
--- NOTE | 2018-09-20 22:16 | CT ---
CT ABDOMEN AND PELVIS WITH IV CONTRAST 09/20/18 HISTORY: Abdominal pain and bloating. COMPARISON: 05/09/18. FINDINGS: Again noted is evidence of prior granulomatous disease with bilateral calcified hilar lymph nodes, ca lcified granuloma in the right middle lobe as well as calcified granulomata in the spleen. There is mild dependent bibasilar atelectasis. The liver, pancreas, bilateral adrenal glands, kidneys, abdominal aorta an urinary bladder demonstrat e a normal CT appearance. There is some metallic densities seen adjacent to the cecal apex which may be related to prior append ectomy, but there is a short appendiceal stump which is normal in caliber. There has been no interval change when compared to the prior exam. IMPRESSION: Stable CT scan of the abdomen and pelvis without acute abnormality identified within the abdomen or p louise. POS: [facility]
== END 2018-09-20 22:08 | disposition home or self-care (01) ==
LOC: MADERS 19:56
DX: R10.32 Left lower quadrant pain (principal); E11.9 Type 2 diabetes mellitus without complications; I12.9 Hypertensive chronic kidney disease with stage 1 through stage 4 chronic kidney disease, or unspecified chronic kidney disease; N18.9 Chronic kidney disease, unspecified; I25.10 Atherosclerotic heart disease of native coronary artery without angina pectoris; J44.9 Chronic obstructive pulmonary disease, unspecified; F17.210 Nicotine dependence, cigarettes, uncomplicated; F41.9 Anxiety disorder, unspecified; I25.2 Old myocardial infarction; E78.5 Hyperlipidemia, unspecified; M19.90 Unspecified osteoarthritis, unspecified site; Z79.899 Other long term (current) drug therapy; Z79.891 Long term (current) use of opiate analgesic; Z79.84 Long term (current) use of oral hypoglycemic drugs
CPT/HCPCS: 74177; 80053; 81003; 83605; 83690; 84484; 85025; 93005; 96361; 96374; 96375; J2405; J3010; J7050; Q9967

== ENCOUNTER 2019-03-02 11:41 | Emergency (ER) | payer OTHER ==
--- NOTE | 2019-03-02 12:35 | RAD ---
Exam:2 views left hip HISTORY: Pain. Injury. COMPARISON: 04/06/2015 FINDINGS: Mild loss of joint space height. Contour of the femoral head is maintained. No fracture. Vi sualized bony pelvis is unremarkable. IMPRESSION: Unremarkable 2 views left hip
[2019-03-02] MEDS ORDERED: traMADol HCl 50 MG TAB ONE (13:04)
== END 2019-03-02 13:06 | disposition home or self-care (01) ==
LOC: MADERS 11:41
DX: S39.011A Strain of muscle, fascia and tendon of abdomen, initial encounter (principal); E11.22 Type 2 diabetes mellitus with diabetic chronic kidney disease; I12.9 Hypertensive chronic kidney disease with stage 1 through stage 4 chronic kidney disease, or unspecified chronic kidney disease; N18.9 Chronic kidney disease, unspecified; E03.9 Hypothyroidism, unspecified; E78.5 Hyperlipidemia, unspecified; E78.00 Pure hypercholesterolemia, unspecified; J44.9 Chronic obstructive pulmonary disease, unspecified; I25.2 Old myocardial infarction; F41.9 Anxiety disorder, unspecified; M19.90 Unspecified osteoarthritis, unspecified site; Z87.891 Personal history of nicotine dependence; Z79.899 Other long term (current) drug therapy; Z79.4 Long term (current) use of insulin; X50.9XXA Other and unspecified overexertion or strenuous movements or postures, initial encounter

== ENCOUNTER 2020-03-03 11:02 | Outpatient (CLI) | payer OTHER ==
--- NOTE | 2020-03-03 13:24 | RAD ---
RADIOGRAPH CERVICAL SPINE 5 VIEWS: DATE: 03/03/2020 HISTORY: 59-year-old male with cervicalgia. FINDINGS: Vertebral body heights are maintained. No high grade disc space narrowing at any level. Moderate face t DJD at C2-3 as seen on lateral view. No high grade DJD at bilateral atlantoaxial joints. No high grade bony central spinal canal stenosis or high grade left neural foraminal stenosis. Uncinate process osteophytes and facet hypertrophy encroach upon right neural foramina at C3-4 and C5 -6, causing at least mild right neural foraminal stenosis. Loss of lordosis suggestive of muscle spasm. Small end plate marginal osteophytes at C4-5. Bilateral degenerative facet hypertrophy at several levels. IMPRESSION: Cervical spondylosis consisting of multilevel facet osteoarthrosis. JN [] POS: [facility]
== END 2020-03-03 11:03 | disposition home or self-care (01) ==
LOC: MADRAD 11:02
PROVIDERS: ATTEND Family Medicine
DX: M54.2 Cervicalgia (principal); M47.812 Spondylosis without myelopathy or radiculopathy, cervical region
CPT/HCPCS: 72050

== ENCOUNTER 2020-05-01 15:33 | Emergency (ER) | payer OTHER ==
[~2020-05-01 15:33] MED LIST changes: +Sodium Chloride 0.9% 1,000 ML BAG ONE
[2020-05-01] MEDS ORDERED: Ondansetron PF 4 MG/2 ML Vial ONE (16:15)
[2020-05-01] MEDS ORDERED: Morphine 4 MG/ML VIAL ONE ×2 (16:15→18:02)
[2020-05-01 16:39] LABS: #Basophils 0.1 thou/uL (0.0-0.2); #Eosinphils 0.3 thou/uL (0.0-0.7); #Lymphocytes 2.9 thou/uL (1.20-3.40); #Monocytes 0.7 thou/uL (0.11-0.59); #Neutrophils 4.9 thou/uL (1.40-6.50); %Basophils 1.2 % (0.0-1.0); %Eosinophils 2.8 % (0.0-10.0); %Lymphocytes 32.7 % (21.0-51.0); %Monocytes 8.1 % (0.0-10.0); %Neutrophils 55.1 % (42.0-75.0); Hemoglobin 14.6 g/dL (14.0-18.0); Mean Corpuscular HGB CONC 30.7 g/dL (32.0-36.0); Mean Corpuscular Hemoglobin 31.2 pg (27.0-31.0); Mean Corpuscular Volume 101.6 fL (78.0-98.0); Mean Platelet Volume 6.9 fL (7.4-10.4); Platelet Count 235 thou/uL (130-400); RBC Distribution Width 13.8 % (11.5-14.5); Red Blood Cell (RBC) Count 4.67 mill/uL (4.70-6.10); White Blood Cell (WBC) Count 8.9 thou/uL (4.8-10.8)
[2020-05-01 16:54] LABS: ALT (SGPT) 40 U/L (8-55); AST (SGOT) 37 U/L (5-34); Alkaline Phosphatase 56 U/L (40-110); Anion Gap 13 mmol/L (10-20); BUN (Urea Nitrogen) 20 mg/dL (8.4-25.7); Bilirubin, Total 0.2 mg/dL (0.2-1.2); Calc. Creatinine Clearance 0 mL/min (70-130); Calcium 8.7 mg/dL (7.8-10.44); Carbon Dioxide 29 mmol/L (23-31); Chloride 102 mmol/L (98-107); Estimated GFR-MDRD 48; Globulin 2.8 g/dL (2.4-3.5); Glucose 103 mg/dL (80-115); Lipase 23 U/L (8-78); Potassium 4.1 mmol/L (3.5-5.1); Protein, Total 6.8 g/dL (5.8-8.1); Sodium 140 mmol/L (136-145)
--- NOTE | 2020-05-01 17:42 | CT ---
CT OF THE ABDOMEN AND PELVIS WITH IV CONTRAST INDICATION: Right upper quadrant abdominal pain with history of appendectomy and hernia repair COMPARISON: Prior CT the abdomen and pelvis dated September 20, 2018 FINDINGS: ABDOMEN: Lung bases: There is a calcified granuloma in the right middle lobe. Lung bases are clear. Liver: There is diffuse fatty liver. There are scattered calcified granuloma. Gallbladder: Normal appearing. Pancreas: Normal. Adrenal glands: Normal. Spleen: There are calcified granuloma in the spleen Kidneys and ureters: Normal. No hydronephrosis. Vasculature: Normal. Lymph nodes:No lymphadenopathy. Free fluid in abdomen:No free fluid is evident. PELVIS: Small and large bowel: Normal Appendix:Not definitely seen Bladder: Normal. Rectal and perirectal soft tissues:Normal. Reproductive structures: Normal. Free fluid in pelvis: No free fluid is evident. Lymphadenopathy pelvis: No lymphadenopathy is evident. Osseous structures: No acute osseous abnormality. No destructive osteolytic or osteoblastic lesion i s identified. There is scattered degenerative and osteoarthritic changes. Soft tissues:There is a fat-containing umbilicus hernia. IMPRESSION: 1. No acute abnormality.
== END 2020-05-01 20:17 | disposition home or self-care (01) ==
LOC: MADERS 15:33
DX: R10.31 Right lower quadrant pain (principal); E11.9 Type 2 diabetes mellitus without complications; E03.9 Hypothyroidism, unspecified; E78.5 Hyperlipidemia, unspecified; E78.00 Pure hypercholesterolemia, unspecified; J44.9 Chronic obstructive pulmonary disease, unspecified; M10.9 Gout, unspecified; I25.2 Old myocardial infarction; I12.9 Hypertensive chronic kidney disease with stage 1 through stage 4 chronic kidney disease, or unspecified chronic kidney disease; N18.9 Chronic kidney disease, unspecified; F41.9 Anxiety disorder, unspecified; F32.9 Major depressive disorder, single episode, unspecified; Z87.891 Personal history of nicotine dependence
CPT/HCPCS: 74177; 80053; 83605; 83690; 85025; 93005; 96374; 96375; 96376; J2270; J2405; J7050; Q9967

== ENCOUNTER 2021-07-31 18:09 | Emergency (ER) | payer OTHER | END 2021-07-31 18:40 | disposition left against medical advice (07) | LOC: MADERS 18:09 | DX: Z53.21 Procedure and treatment not carried out due to patient leaving prior to being seen by health care provider (principal) ==

== ENCOUNTER 2022-09-09 10:10 | Outpatient (CLI) | payer OTHER | END 2022-09-09 10:11 | disposition home or self-care (01) | LOC: MADRAD 10:10 | PROVIDERS: ATTEND Family Medicine | DX: K59.00 Constipation, unspecified (principal); R14.0 Abdominal distension (gaseous) | CPT/HCPCS: 74018 ==

== ENCOUNTER 2023-04-11 12:18 | Emergency (ER) | payer OTHER, MEDICARE, MEDICAID ==
[2023-04-11 12:55] LABS: #Basophils 0.1 thou/uL (0.0-0.2); #Eosinphils 0.2 thou/uL (0.0-0.7); #Lymphocytes 2.5 thou/uL (1.20-3.40); #Monocytes 0.5 thou/uL (0.11-0.59); #Neutrophils 4.6 thou/uL (1.40-6.50); %Basophils 0.9 % (0.0-1.0); %Eosinophils 2.3 % (0.0-10.0); %Lymphocytes 31.8 % (21.0-51.0); %Monocytes 6.4 % (0.0-10.0); %Neutrophils 58.5 % (42.0-75.0); Hematocrit 51.1 % (42.0-52.0); Hemoglobin 15.7 g/dL (14.0-18.0); Mean Corpuscular HGB CONC 30.8 g/dL (32.0-36.0); Mean Corpuscular Hemoglobin 30.4 pg (27.0-31.0); Mean Corpuscular Volume 98.7 fl (78.0-98.0); Mean Platelet Volume 8.5 fL (7.4-10.4); Platelet Count 208 10x3/uL (130-400); RBC Distribution Width 13.9 % (11.5-14.5); Red Blood Cell (RBC) Count 5.18 mill/uL (4.70-6.10); White Blood Cell (WBC) Count 7.8 10x3/uL (4.8-10.8)
[2023-04-11 13:12] LABS: ALT (SGPT) 21 U/L (8-55); AST (SGOT) 28 U/L (5-34); Albumin 3.8 g/dL (3.4-4.8); Alkaline Phosphatase 84 U/L (40-110); Anion Gap 15 mmol/L (10-20); BUN (Urea Nitrogen) 31 mg/dL (8.4-25.7); Bilirubin, Total 0.4 mg/dL (0.2-1.2); Calc. Creatinine Clearance 0 mL/min (70-130); Calcium 9.5 mg/dL (7.8-10.44); Carbon Dioxide 31 mmol/L (23-31); Chloride 94 mmol/L (98-107); Estimated GFR 29; Globulin 3.5 g/dL (2.4-3.5); Glucose 219 mg/dL (80-115); Potassium 5.1 mmol/L (3.5-5.1); Protein, Total 7.3 g/dL (5.8-8.1); Sodium 135 mmol/L (136-145)
== END 2023-04-11 15:50 | disposition home or self-care (01) ==
LOC: MADERS 12:18
DX: S00.83XA Contusion of other part of head, initial encounter (principal); S20.212A Contusion of left front wall of thorax, initial encounter; R91.1 Solitary pulmonary nodule; I25.119 Atherosclerotic heart disease of native coronary artery with unspecified angina pectoris; I11.0 Hypertensive heart disease with heart failure; I50.9 Heart failure, unspecified; E11.9 Type 2 diabetes mellitus without complications; Z79.4 Long term (current) use of insulin; E03.9 Hypothyroidism, unspecified; E78.5 Hyperlipidemia, unspecified; J44.9 Chronic obstructive pulmonary disease, unspecified; Z87.891 Personal history of nicotine dependence; Z79.899 Other long term (current) drug therapy; Z79.82 Long term (current) use of aspirin; Z79.01 Long term (current) use of anticoagulants; W01.10XA Fall on same level from slipping, tripping and stumbling with subsequent striking against unspecified object, initial encounter
CPT/HCPCS: 71250; 74177; 80053; 85025

== ENCOUNTER 2023-08-11 14:05 | Emergency (ER) | payer MEDICARE, MEDICAID ==
[~2023-08-11 14:05] MED LIST changes: -Sodium Chloride 0.9% 1,000 ML BAG ONE; +Sodium Chloride 0.9% 100 ML BAG ONE
[2023-08-11] MEDS ORDERED: Sodium Chloride 0.9% 1,000 ML ONE (14:34)
[2023-08-11 14:42] LABS: INR-International Normal Ratio 1.1; PTT 25.8 sec (22.9-36.1); Prothrombin Time 14.9 sec (12.0-14.7)
[2023-08-11 14:45] LABS: Hematocrit 44.3 % (42.0-52.0); Hemoglobin 14.8 g/dL (14.0-18.0); Mean Corpuscular HGB CONC 33.5 g/dL (32.0-36.0); Mean Corpuscular Hemoglobin 31.2 pg (27.0-31.0); Mean Corpuscular Volume 93.3 fl (78.0-98.0); Mean Platelet Volume 8.2 fL (7.4-10.4); Platelet Count 179 10x3/uL (130-400); RBC Distribution Width 14.1 % (11.5-14.5); Red Blood Cell (RBC) Count 4.75 mill/uL (4.70-6.10); White Blood Cell (WBC) Count 11.3 10x3/uL (4.8-10.8)
[2023-08-11 14:52] LABS: ALT (SGPT) 19 U/L (8-55); AST (SGOT) 25 U/L (5-34); Albumin 3.7 g/dL (3.4-4.8); Alkaline Phosphatase 71 U/L (40-110); Anion Gap 15 mmol/L (10-20); BUN (Urea Nitrogen) 33 mg/dL (8.4-25.7); Bilirubin, Total 0.5 mg/dL (0.2-1.2); Calc. Creatinine Clearance 0 mL/min (70-130); Calcium 8.7 mg/dL (7.8-10.44); Carbon Dioxide 27 mmol/L (23-31); Chloride 95 mmol/L (98-107); Estimated GFR 24; Globulin 2.9 g/dL (2.4-3.5); Glucose 277 mg/dL (80-115); Potassium 5.3 mmol/L (3.5-5.1); Protein, Total 6.6 g/dL (5.8-8.1); Sodium 132 mmol/L (136-145)
[2023-08-11 14:55] LABS: Band 2 % (5-11); Lymphocytes 18 % (21-51); MDiff Complete? YES; Manual Diff?? YES; Monocytes 5 % (0-10); Neutrophil 73 % (42-75)
[2023-08-11 14:56] LABS: Eosinophils 2 % (0-10)
[2023-08-11 14:57] LABS: Anisocytosis SLIGHT = 6-15 cells (100X) (0-5/hpf); Platelet Adequacy Comment Appears Adequate
[2023-08-11 14:58] LABS: Troponin I 0.012 ng/mL (< 0.028)
[2023-08-11] MEDS ORDERED: Calcium Gluc 4.6 MEQ/10 ML (100 MG/ML) ONE (15:22)
[2023-08-11] MEDS ORDERED: Dextrose 50% Abboject 50 ML SYRINGE ONE (15:22)
[2023-08-11] MEDS ORDERED: Insulin Regular 300 UNITS/3 ML VIAL ONE (15:23)
[2023-08-11 18:01] LABS: Bilirubin Negative (Negative); Blood, Urine Negative (Negative); Clarity Clear (Clear); Glucose, Urine (Dipstick) 100 mg/dL (Negative); Ketone, Urine Negative (Negative); Leukocyte Negative (Negative); Nitrite Negative (Negative); Protein, Urine (Dipstick) Negative (Neg-Trace); Urobilinogen 0.2 mg/dL (Less than 2); pH, Urine 5.5 (5.0-9.0)
[2023-08-11 18:02] LABS: CAUTI Indications for Culture Dysuria,urgency,freq; RBC/HPF 0-3 HPF (0-3)
[2023-08-11 18:03] LABS: Magnesium 1.2 mg/dL (1.6-2.6)
[2023-08-11 18:03] LABS: Bacteria/HPF Rare-Few HPF (None Seen); Squamous Epithelial 0-3 HPF (0-3); Urine Culture Reflex No No; WBC/HPF None Seen HPF (0-3)
[2023-08-11] MEDS ORDERED: Amoxicillin/Potassium Clav 875 MG TAB ONE (18:11)
[2023-08-11] MEDS ORDERED: Azithromycin 250 MG TAB ONE (18:11)
[2023-08-11] MEDS ORDERED: Magnesium Oxide 400 MG TAB ONE (18:11)
== END 2023-08-11 20:06 | disposition short-term general hospital (02) ==
LOC: MADERS 14:05
DX: R42 Dizziness and giddiness (principal); N17.9 Acute kidney failure, unspecified; E87.5 Hyperkalemia; E83.42 Hypomagnesemia; R94.31 Abnormal electrocardiogram [ECG] [EKG]; I25.2 Old myocardial infarction; E11.9 Type 2 diabetes mellitus without complications; J44.9 Chronic obstructive pulmonary disease, unspecified; E03.9 Hypothyroidism, unspecified; I50.9 Heart failure, unspecified; I73.9 Peripheral vascular disease, unspecified; I25.10 Atherosclerotic heart disease of native coronary artery without angina pectoris; Z79.4 Long term (current) use of insulin; Z87.891 Personal history of nicotine dependence; Z79.85 Long-term (current) use of injectable non-insulin antidiabetic drugs; Z79.899 Other long term (current) drug therapy; Z79.82 Long term (current) use of aspirin
CPT/HCPCS: 0042T; 70450; 71045; 80053; 81001; 82962; 83735; 84484; 85025; 85610; 85730; 93005; J0612; 36415; 36416; 96361; 96374; 96375; J1815; J3490; J7050; J7999; Q9967

== ENCOUNTER 2023-08-25 08:16 | Outpatient (CLI) | payer MEDICARE, MEDICAID ==
[2023-08-25 08:49] LABS: ALT (SGPT) 20 U/L (8-55); AST (SGOT) 29 U/L (5-34); Albumin 3.7 g/dL (3.4-4.8); Alkaline Phosphatase 79 U/L (40-110); Anion Gap 12 mmol/L (10-20); BUN (Urea Nitrogen) 25 mg/dL (8.4-25.7); Bilirubin, Total 0.6 mg/dL (0.2-1.2); Calc. Creatinine Clearance 0 mL/min (70-130); Calcium 8.6 mg/dL (7.8-10.44); Carbon Dioxide 32 mmol/L (23-31); Chloride 94 mmol/L (98-107); Estimated GFR 34; Globulin 2.5 g/dL (2.4-3.5); Glucose 284 mg/dL (80-115); Potassium 4.5 mmol/L (3.5-5.1); Protein, Total 6.2 g/dL (5.8-8.1); Sodium 133 mmol/L (136-145)
== END 2023-08-25 08:17 | disposition home or self-care (01) ==
LOC: MADLAB 08:16
PROVIDERS: ATTEND Family Medicine
DX: J18.9 Pneumonia, unspecified organism (principal)
CPT/HCPCS: 36415; 71046; 80053